=== PATIENT | male | born 2000 | race Two or more races ===

== ENCOUNTER 2024-12-08 22:04 | Emergency (ER) | payer SELFPAY ==
[2024-12-08 22:05] VITALS: BMI 28.5
[2024-12-08 22:22] VITALS: BP 132/88; PULSE 73; RESP 18; TEMP 36.6; O2SAT 95
--- NOTE | 2024-12-08 22:39 | PD.EDADULT ---
ED General RME/HPI General Chief complaint: Eye Problems Stated complaint: BILATERAL EYE REDNESS X 2DAYS Time Seen by Provider: 12/08/24 22:25 Arrival date/time: 12/08/24 22:04 CC: Eye pain eye irritation HPI patient returned from [place] where he was cutting trees for the past 5 days, the patient noted in the past 24 hours hearing progressive worsening light sensitivity crusting around his eyes to the point where they became quite painful no OTC medicine pain medication taken. Patient denies loss of vision but eyes sensitivity to light. No prior history of similar events patient states he was using glasses while cutting trees but still got stuff in his eye . Related Data Previous Rx's ?Medication ?Instructions ?Recorded ibuprofen 800 mg tablet 800 mg PO Q8H #14 tabs 12/08/24 tobramycin 0.3 % eye drops 1 drp ophthalmic (eye) Q4H #5 mL 12/08/24 Allergies Allergy/AdvReac Type Severity Reaction Status Date / Time NKA* Allergy Uncoded 05/31/14 21:54 Review of Systems Review of Systems Narrative Review of Systems: GEN: No fever, no chills, no weight loss EYES: No discharge, no visual changes, no pain HEENT: + eye pain, No ear pain, no congestion, no sore throat PULM: No shortness of breath, no cough, no congestion CV: No chest pain, no dyspnea on exertion, no palpitations GI: No nausea, no vomiting, no diarrhea, no pain, no constipation : No frequency, no urgency, no dysuria MUSC/SKEL: No joint pain, no back pain SKIN: No rash PSYCH: No hallucinations, no depression HEME/LYMPH: No easy bleeding or bruising tendencies NEURO: No weakness, no headache Past Medical History Social History SMOKING STATUS: Never smoker ED Exam Narrative Physical exam: [General: In mild to moderate discomfort but not in any acute distress Head normocephalic HEENT: Eyes pupils are PERRLA EOMs are intact heavily exudative crusting to the upper and lower lids injected conjunctiva. Sclera's are mildly erythematous. Under fluorescein dye, no corneal abrasions or foreign bodies appreciated. All of the subsystems of HEENT are within acceptable limits Neck is supple nontender Chest equal chest rise nontender to palpation Respiratory: Clear to auscultation no wheezes crackles or rubs CV: Rate rhythm is regular no murmurs rubs or clicks Abdomen is soft nontender no masses positive bowel sounds all 4 quadrants Back: No CVA tenderness no spinous process tenderness from cervical spine thoracic and lumbar spine Skin: Intact no petechiae rash induration ulceration or crepitus Extremities: Moving all extremity against resistance cap refill less than 2 seconds neurosensory intact Neuro: Awake alert oriented x3 Glascow coma 15 no focal deficits] Course Quality Measures none Orders Category Date Time Status Miscellaneous Nursing Order NOW Care 12/08/24 22:33 Active Fluorescein Sodium [Bio-Lacie] Med 12/08/24 22:36 Discontinued 1 mg BOTH EYES X1 ONE Fluorescein Sodium [Bio-Lacie] Med 12/08/24 22:29 Discontinued 2 mg .ROUTE .STK-MED ONE Ibuprofen Tab [Motrin Tab] Med 12/08/24 22:37 Once 800 mg PO X1 ONE Tobramycin Op Tabitha 0.3% [Tobrex Op Tabitha 0.3%] Med 12/08/24 22:37 Once See Dose Instructions BOTH EYES X1 ONE Vital Signs Vital signs: Vital Signs Temperature 97.8 F 12/08/24 22:22 Pulse Rate 73 12/08/24 22:22 Respiratory Rate 18 12/08/24 22:22 Blood Pressure 132/88 H 12/08/24 22:22 Pulse Oximetry (%) 95 12/08/24 22:22 Oxygen Delivery Method Room Air 12/08/24 22:22 Discharge Plan Plan Patient Disposition: HOME (Self Care) Patient condition on transfer: Stable Prescriptions/Referrals Prescriptions/Med Rec: New tobramycin 0.3 % drops 1 drp ophthalmic (eye) Q4H Qty: 5 0RF ibuprofen 800 mg tablet 800 mg PO Q8H Qty: 14 0RF Referrals: Nick Hernandez MD [Referring Provider, Opthalmology] - In 1 week Temporary Provider,ED [Primary Care Provider, Emergency Medicine] - In 1 week Problem List Clinical Impression: Conjunctivitis Patient/Caregiver Discharge Instructions Other Activity Instructions:: Be very careful wiping her eyes, make sure you use disposable Kleenex's do not use 1 Kleenex for both eyes just a single Kleenex for each eye individually. Put the drops in do not allow the tip of the dropper to touch her eye on either side. Follow-up with the health safety specialist listed above if there is worsening of symptoms in spite of the medications return immediately to the emergency room. Use ibuprofen provided in the prescription for temporary pain relief. Education Materials: ED Conjunctivitis, Nonspecific, What Is Conjunctivitis? Print Language: Monegasque Stand Alone Forms: Zenia Award Info., Patient Portal Info Letter, Work/School Release PA/DIEGO Supervising Physician PA/DIEGO Supervising Physician: Noah Avelar ENP MDM Clinical Information Provided by: patient Medical Records reviewed [facility] Meds/Rx considered, not ordered None Labs/Rad/Tests considered, not ordered None Chronic Illness/Social Conditions which may negatively complicate care or outcome(s)-explain: None or not applicable EKG EKG not done Labs Labs: none Imaging Imaging interpretation: none Medication Administration(s) Medication Administration History Discontinued Medications Fluorescein Sodium (Fluorescein Sod 1 Mg Strp) Confirm Administered Dose 2 mg .ROUTE .STK-MED ONE Stop: 12/08/24 22:30 Fluorescein Sodium (Fluorescein Sod 1 Mg Strp) 1 mg BOTH EYES X1 ONE Stop: 12/08/24 22:37 Last Admin: 12/08/24 22:39 Dose: Not Given Documented By: AC Non-Admin Reason: Override Medication Diagnosis Differential Diagnosis ED Complaint MDM: Keratitis corneal abrasion corneal foreign body conjunctivitis
[2024-12-08] MEDS: FLUORESCEIN SOD 1 MG STRP BOTH EYES (22:42)
[2024-12-08] MEDS: TOBRAMYCIN OP SOL 0.3% 5 ML BTL BOTH EYES (22:49)
[2024-12-08] MEDS: IBUPROFEN TAB 400 MG TABLET 800 MG PO (22:50)
== END 2024-12-08 22:53 | disposition home or self-care (01) ==
PROVIDERS: Emergency Provider Emergency Medicine
DX: H10.9 Unspecified conjunctivitis (principal)
CPT/HCPCS: 99283; A9270